=== PATIENT | female | born 1955 | race Caucasian/White ===

== ENCOUNTER 2016-05-18 22:56 | Observation (INO) | payer BC ==
[~2016-05-18] VITALS: Ht 172.7 cm; Wt 96.6 kg
[~2016-05-18 22:56] MED LIST: ANTIVERT25 MG PO; ATIVAN0.5 MG PO; COZAAR100 MG PO; INDERAL LA60 MG PO; TENORMIN25 MG PO
[2016-05-19 00:24] LABS: HEMATOCRIT 43.2 % (36.0-46.0); MCH 28.2 PG (29.0-34.0); MCHC 33.8 G/DL (30.0-36.0); MCV 83.6 FL (83-99); RED BLOOD COUNT 5.17 M/uL (3.80-5.20); WHITE BLOOD COUNT 7.1 K/uL (4.1-10.2)
[2016-05-19 00:25] LABS: MEAN PLAT.VOLUME 10.5 uM^3 (9.5-12.4); PLATELET COUNT 254 K/uL (156-360); RBC DIS.WIDTH-CV 13.5 % (11.8-14.6)
[2016-05-19 00:26] LABS: CHLORIDE 109 mEq/L (99-109); POTASSIUM 3.6 mEq/L (3.7-5.4); SODIUM 143 mEq/L (136-147)
[2016-05-19 00:29] LABS: GLUCOSE 104 mg/dL (70-99)
[2016-05-19 00:30] LABS: ANION GAP 11 MEQ/L (2-14)
[2016-05-19 00:31] LABS: TOTAL BILIRUBIN 0.4 mg/dL (0.0-1.0)
[2016-05-19 00:32] LABS: ALKALINE PHOSPHATASE 89 IU/L (3-129); GFR ESTIMATE (CALCULATED) > 59 mL/min/
[2016-05-19 00:33] LABS: UREA NITROGEN (BUN) 10 mg/dL (9-23)
[2016-05-19 00:40] LABS: TROP-I INTERPRETATION NEGATIVE; TROPONIN-I < 0.01 ng/mL (0.0-0.30)
[2016-05-19] MEDS ORDERED: LOSARTAN POTASS50 MG PO (01:58)
[2016-05-19] MEDS ORDERED: ALPRAZOLAM0.25 M2 PO (01:58)
[2016-05-19] MEDS ORDERED: CLONIDINE HCL0.1 MG PO (01:58)
[2016-05-19] MEDS ORDERED: LO-DOSE ASPIRIN81 M1 PO (01:59)
[2016-05-19] MEDS ORDERED: PRILOSEC20 MG PO (01:59)
[2016-05-19 04:46] VITALS: BP 152/75
[2016-05-19 05:56] LABS: TROP-I INTERPRETATION NEGATIVE; TROPONIN-I < 0.01 ng/mL (0.0-0.30)
[2016-05-19 07:41] VITALS: BP 145/78
[2016-05-19 10:59] VITALS: BP 157/76
[2016-05-19 12:49] LABS: TROP-I INTERPRETATION NEGATIVE; TROPONIN-I < 0.01 ng/mL (0.0-0.30)
[2016-05-19] MEDS ORDERED: HYGROTON25 MG PO (14:00)
== END 2016-05-19 14:52 | disposition home or self-care (01) ==
LOC: EME 22:56 → EDOF 05-19 01:56 → 5WEST 05-19 04:23
PROVIDERS: Emergency Medicine; Physician Assistant
DX: I16.0 Hypertensive urgency (principal); I10 Essential (primary) hypertension; R07.89 Other chest pain; E87.6 Hypokalemia; R00.2 Palpitations; F41.9 Anxiety disorder, unspecified; G65.0 Sequelae of Guillain-Barre syndrome; G62.9 Polyneuropathy, unspecified; G43.909 Migraine, unspecified, not intractable, without status migrainosus
CPT/HCPCS: 71020; 80053; 84484; 85027; 93005; 99281; 99285; G0378

== ENCOUNTER 2016-06-26 15:43 | Observation (INO) | payer BC ==
[~2016-06-26] VITALS: Ht 170.2 cm; Wt 97.0 kg
[~2016-06-26 15:43] MED LIST changes: +ALPRAZOLAM0.25 M2 PO; +CLONIDINE HCL0.1 MG PO; +HYGROTON25 MG PO; +LO-DOSE ASPIRIN81 M1 PO; +LOSARTAN POTASS50 MG PO; +PRILOSEC20 MG PO
[2016-06-26 16:57] LABS: EOSINOPHIL (%) 0.9 % (0-5); EOSINOPHIL COUNT 0.1 K/uL (0-0.3); HEMATOCRIT 47.3 % (36.0-46.0); IMMATURE GRANULOCYTE (%) 0.3 % (0.0-0.7); INSTRUMENT ABS NEUTROPHIL CT 5.4 K/uL; LYMPHOCYTE COUNT 1.8 K/uL (1.0-2.8); MCHC 32.6 G/DL (30.0-36.0); MEAN PLAT.VOLUME 10.6 uM^3 (9.5-12.4); MONOCYTE (%) 6.7 % (3-12); MONOCYTE COUNT 0.5 K/uL (0-0.8); NEUTROPHIL (%) 69.2 % (45-76); NEUTROPHIL COUNT 5.4 K/uL (1.8-6.4); PLATELET COUNT 270 K/uL (156-360); RBC DIS.WIDTH-CV 13.4 % (11.8-14.6); RBC DIS.WIDTH-SD 42.4 % (39-53); WHITE BLOOD COUNT 7.8 K/uL (4.1-10.2)
[2016-06-26 17:08] LABS: CHLORIDE 107 mEq/L (99-109); POTASSIUM 3.9 mEq/L (3.7-5.4); SODIUM 141 mEq/L (136-147)
[2016-06-26 17:09] LABS: MAGNESIUM 2.2 mg/dL (1.3-2.7)
[2016-06-26 17:10] LABS: GLUCOSE 95 mg/dL (70-99)
[2016-06-26 17:12] LABS: ANION GAP 10 MEQ/L (2-14)
[2016-06-26 17:14] LABS: GFR ESTIMATE (CALCULATED) > 59 mL/min/
[2016-06-26 17:15] LABS: UREA NITROGEN (BUN) 13 mg/dL (9-23)
[2016-06-26] MEDS ORDERED: PRILOSEC OTC20 MG PO (20:02)
[2016-06-26] MEDS ORDERED: PRED FORTE100 DROP/5 RIGHT EYE (20:03)
[2016-06-26] MEDS ORDERED: TYLENOL REGULA325 MG PO (20:03)
[2016-06-26] MEDS ORDERED: FLONASE16 G1 BOTH NARES (20:03)
[2016-06-26] MEDS ORDERED: CYANOCOBAL1000 MCG/2 IM (20:04)
[2016-06-26 23:03] VITALS: BP 135/67
[2016-06-27 08:00] VITALS: BP 122/74
[2016-06-27 10:07] LABS: ADD MIUA? YES; BILIRUBIN NEGATIVE; BLOOD SMALL; COLOR YELLOW ((YELLOW)); GLUCOSE (STRIP) NEGATIVE; KETONES 5; LEUKOCYTES TRACE; NITRITE POSITIVE; PROTEIN (STRIP) NEGATIVE; SPECIFIC GRAVITY 1.023 (1.000-1.030)
[2016-06-27 10:17] LABS: BACTERIA RARE /HPF; EPITHELIAL CELLS RARE /HPF; MUCUS 1+ /LPF; UCUL ADDED? NO
[2016-06-27] MEDS ORDERED: CEFTIN500 MG PO (10:53)
[2016-06-27 12:21] VITALS: BP 134/80
[2016-06-27 16:03] VITALS: BP 146/67
[2016-06-27 20:00] VITALS: BP 119/71
== END 2016-06-27 21:50 | disposition home or self-care (01) ==
LOC: EME 15:43 → 5WEST 21:18 → EDOF 21:18 → 5WEST 22:56
PROVIDERS: Hospitalist; Physician Assistant
DX: M62.81 Muscle weakness (generalized) (principal); N39.0 Urinary tract infection, site not specified; I10 Essential (primary) hypertension; G43.909 Migraine, unspecified, not intractable, without status migrainosus; F41.9 Anxiety disorder, unspecified; Z86.19 Personal history of other infectious and parasitic diseases
CPT/HCPCS: 70450; 80048; 81003; 83735; 85025; 93005; 99281; 99284; G0378; J0696; J3420; J7050

== ENCOUNTER 2016-09-23 01:29 | Inpatient (IN) | payer BC ==
[~2016-09-23] VITALS: Ht 171.4 cm; Wt 80.2 kg
[~2016-09-23 01:29] MED LIST changes: +CEFTIN500 MG PO; +CYANOCOBAL1000 MCG/2 IM; +FLONASE16 G1 BOTH NARES; +PRED FORTE100 DROP/5 RIGHT EYE; +PRILOSEC OTC20 MG PO; +TYLENOL REGULA325 MG PO
[2016-09-23 02:08] LABS: HEMATOCRIT 50.4 % (36.0-46.0); MCH 27.7 PG (29.0-34.0); MCHC 31.9 G/DL (30.0-36.0); MEAN PLAT.VOLUME 10.2 uM^3 (9.5-12.4); PLATELET COUNT 268 K/uL (156-360); RBC DIS.WIDTH-CV 13.1 % (11.8-14.6); RBC DIS.WIDTH-SD 41.4 % (39-53); RED BLOOD COUNT 5.82 M/uL (3.80-5.20); WHITE BLOOD COUNT 10.4 K/uL (4.1-10.2)
[2016-09-23 02:09] LABS: MCV 86.6 FL (83-99)
[2016-09-23 02:21] LABS: CHLORIDE 104 mEq/L (99-109); POTASSIUM 3.9 mEq/L (3.7-5.4); SODIUM 143 mEq/L (136-147)
[2016-09-23 02:23] LABS: GLUCOSE 168 mg/dL (70-99)
[2016-09-23 02:24] LABS: ANION GAP 12 MEQ/L (2-14)
[2016-09-23 02:25] LABS: TOTAL BILIRUBIN 0.8 mg/dL (0.0-1.0)
[2016-09-23 02:26] LABS: ALKALINE PHOSPHATASE 163 IU/L (3-129)
[2016-09-23 02:27] LABS: GFR ESTIMATE (CALCULATED) > 59 mL/min/
[2016-09-23 02:28] LABS: UREA NITROGEN (BUN) 13 mg/dL (9-23)
[2016-09-23] MEDS ORDERED: COZAAR50 MG PO (02:35)
[2016-09-23 02:46] LABS: LIPASE 9 U/L (1.0-51.0)
[2016-09-23 05:37] VITALS: BP 170/68
[2016-09-23 06:27] LABS: ADD MIUA? YES; BILIRUBIN NEGATIVE; BLOOD NEGATIVE; COLOR YELLOW ((YELLOW)); GLUCOSE (STRIP) 50; KETONES 20; LEUKOCYTES NEGATIVE; NITRITE NEGATIVE; PROTEIN (STRIP) 30; SPECIFIC GRAVITY 1.013 (1.000-1.030)
[2016-09-23 06:31] LABS: EPITHELIAL CELLS RARE /HPF; RED BLOOD CELLS 0-5 /HPF (0-5); WHITE BLOOD CELLS 0-5 /HPF (0-5)
[2016-09-23 06:32] LABS: BACTERIA RARE /HPF; MUCUS NONE SEEN /LPF; UCUL ADDED? NO
[2016-09-23 07:25] VITALS: BP 160/80
[2016-09-23 12:00] VITALS: BP 127/69
[2016-09-23 12:13] LABS: POINT-OF-CARE METER ID UU14162508
[2016-09-23] MEDS ORDERED: PRILOSEC OTC20 MG PO (13:38)
[2016-09-23] MEDS ORDERED: MECLIZINE HCL25 MG PO (13:38)
[2016-09-23] MEDS ORDERED: CYANOCOBAL1000 MCG/2 IM (13:39)
[2016-09-23 16:30] VITALS: BP 120/64
[2016-09-23 17:42] LABS: POINT-OF-CARE METER ID UU14162508
[2016-09-23] MEDS ORDERED: NORCO 5/3251 TABLET PO (19:49)
[2016-09-23 21:10] VITALS: BP 173/81
[2016-09-24 04:11] VITALS: BP 161/79
[2016-09-24 07:41] VITALS: BP 140/85
[2016-09-24 12:04] VITALS: BP 152/84
[2016-09-24 15:11] VITALS: BP 137/74
== END 2016-09-24 15:47 | disposition home or self-care (01) | DRG 419 ==
LOC: EME 01:29 → EDOF 03:51 → 2EAST 03:51
PROVIDERS: Emergency Medicine
PROC: 0FT44ZZ Resection of Gallbladder, Percutaneous Endoscopic Approach (ICD-10-PCS; principal; 2016-09-23)
DX: K80.10 Calculus of gallbladder with chronic cholecystitis without obstruction (principal); I49.3 Ventricular premature depolarization; I10 Essential (primary) hypertension; R79.89 Other specified abnormal findings of blood chemistry; K21.9 Gastro-esophageal reflux disease without esophagitis; G43.909 Migraine, unspecified, not intractable, without status migrainosus; M54.9 Dorsalgia, unspecified; F41.9 Anxiety disorder, unspecified
CPT/HCPCS: 76705; 80053; 81003; 82948; 83690; 85027; 88304; 99281; 99285; J0690; J0696; J1100; J1650; J2270; J2405; J2765; J3010; J7030; J7050